=== PATIENT | female | born 1990 | race American Indian/Alaskan Native ===

== ENCOUNTER 2019-05-03 08:12 | Day surgery (SDC) | payer MEDICAID, OTHER ==
--- NOTE | 2019-05-03 10:46 | Anesthesia Day of Surgery ---
Anesthesia Day of Surgery - Day of Surgery Patient Examined: Yes Patient H&P Reviewed: Yes Patient is NPO: Yes
--- NOTE | 2019-05-03 10:46 | Anesthesia Consultation ---
Anesthesia Consult and Med Hx Date of service: 05/03/19 - Airway Anesthetic Teeth Evaluation: Good ROM Head & Neck: Adequate Mental/Hyoid Distance: Adequate Mallampati Class: Class II Intubation Access Assessment: Probably Good - Pre-Operative Health Status ASA Pre-Surgery Classification: ASA2 Proposed Anesthetic Plan: MAC - Pulmonary Hx Asthma: Yes
[2019-05-03] MEDS ORDERED: VERSED ONE (10:53)
[2019-05-03] MEDS ORDERED: DIPRIVAN 10 MG/ML IV ONE (10:53)
[2019-05-03] MEDS ORDERED: NACL 0.9% 1000 ML 1,000 ML IV SCH (11:00)
--- NOTE | 2019-05-03 11:14 | Procedure Note ---
Date of procedure: 05/03/19 Pre-op diagnosis: Hematochezia and Lower Abdominal Pain Post-op diagnosis: other (Large External Hemorrhoid/Mild to Moderate Internal Hemorrhoid/ Normal colon Mucosa) Procedure: Colonoscopy Anesthesia: MAC Surgeon: IRENE OTT Estimated blood loss: none Pathology: none Condition: stable Disposition: same day (Treat with Anusol HC supp. Refer patient to a colrectal Surgeon and follow up in 1 to 2 weeks ([phone]).)
[2019-05-03] MEDS ORDERED: XYLOCAINE MPF 2% ONE (12:00)
[2019-05-03 12:20] VITALS: BP 127/77
--- NOTE | 2019-05-03 17:03 | Operative Report ---
PROCEDURE: COLONOSCOPY INDICATIONS: This is a 29-year-old -[place] female who is in otherwise good health, who has lately been having some hematochezia and some lower abdominal pain. Colonoscopy was done to assess for the problem. DESCRIPTION OF PROCEDURE: The procedure was done after getting informed consent with MAC anesthesia. Initial rectal exam showed presence of a large external hemorrhoid, which may have been the cause of the patient's hematochezia. Instrument was passed through the rectum and onto the cecum, which was identified with ileocecal valve and the appendiceal orifice. The scope was retroflexed in the cecum and then straightened and withdrawn to the hepatic flexure and reintroduced. No additional pathology was noted in the cecum, ascending colon, which showed normal mucosa as did the transverse colon, descending colon, and sigmoid. The rectum showed mild to moderate internal hemorrhoid. The main issue appeared to be the large external hemorrhoid for the patient's hematochezia. ASSESSMENT: Hematochezia. Large external hemorrhoid possibly worsened by the patient's , mild to moderate internal hemorrhoid, normal colon mucosa. PLAN: Plan is to treat the patient with Anusol-HC suppository. Refer the patient to a colorectal surgeon for further evaluation and treatment and have the patient follow up in the office in 1-2 weeks' time. There was no bleeding associated with the procedure. No complications associated with the procedure. There were no biopsies done and again the patient will be asked to follow up in 1-2 weeks' time. The procedure was done in the GI lab with assistance of anesthesia and with the presence and assistance of JORGE ALBERTO Canchola and Jh kay. JOB# [id number] SOC[facility]/CARLYLE
== END 2019-05-03 08:13 | disposition home or self-care (01) ==
LOC: GIO 08:12
DX: K64.8 Other hemorrhoids (principal); K92.1 Melena; R10.30 Lower abdominal pain, unspecified; J45.909 Unspecified asthma, uncomplicated; Z79.899 Other long term (current) drug therapy; Z98.51 Tubal ligation status; Z98.890 Other specified postprocedural states
CPT/HCPCS: 45378; 81025; J2250; J2704; J7030